=== PATIENT | male | born 1960 | race Caucasian/White ===

== ENCOUNTER 2024-07-07 18:45 | Emergency (ER) | payer MEDICAID, SELFPAY ==
--- NOTE | ~2024-07-07 | CT_ITS ---
EXAMINATION CT HEAD WITHOUT CONTRAST CLINICAL INFORMATION: Altered mental status COMPARISON: None TECHNIQUE: CT of the head was performed without intravenous contrast. Reformatted axial, coronal, and sagittal images were reviewed. This CT examination was performed using dose optimization techniques as appropriate, variously including the following: *Automated exposure control *Adjustment of mA and/or kV according to patient size (this includes techniques or standardized protocols for targeted exams where dose is matched to indication/reason for exam; i.e. extremities or head) *Use of iterative reconstruction technique DLP: 657 mGy-cm FINDINGS: No intracranial hemorrhage, extra-axial fluid collection, or midline shift is identified. Hollis-white matter differentiation is preserved. Prominence of the cerebral sulci with commensurate ventriculomegaly consistent with age-related cerebral volume loss. Basal cisterns are within normal limits. Paranasal sinuses are clear. Mastoid air cells and middle ear cavities are clear. No acute calvarial fractures. CT/CT head/brain wo IV con IMPRESSION: 1. No acute intracranial abnormality. 2. Age-related cerebral volume loss. Electronically signed by: Simon Campbell DO 07/07/2024 10:49 PM [place]
[2024-07-07 18:50] VITALS: BP 131/89; PULSE 104; RESP 20; TEMP 36.7; O2SAT 94; BMI 18.3
--- NOTE | 2024-07-07 18:50 | ED.GENADULT ---
HPI - General Adult General Chief complaint: General Medical Stated complaint: crisis Time Seen by Provider: 07/07/24 19:32 History of Present Illness ED Provider: Rebecca LAM narrative: The patient is a 64-year-old male who says that he is homeless. He is currently staying at a [facility] called [facility] He says that he is on 3 medications for depression and anxiety. He says that these medications have helped him stay focused and have also helped him stay off alcohol. He says that he has been quite sober for the last 6 months. He is concerned because he has run out of his medications and has not been able to get a refill. He says he has been on these medications for about 2 years. He cannot remember the name of the medications. He thinks that he may have gotten the medications through the [facility] in [place]. He says that he was told that he needs to be seen by a provider before he can get refills and he has been unable to arrange this. Today he drank some beer and he felt quite upset about this and so came to the emergency room for help. Subsequent history was available from some kind of product expert who contacted the hospital. Apparently the patient's prescribed medications are atorvastatin, hydroxyzine, escitalopram, and bupropion. The product expert indicated the patient has not taken medications in months. The product expert also indicated that the patient had expressed some suicidal ideation and had spoken about possibly jumping off a bridge. Related Data Allergies Allergy/AdvReac Type Severity Reaction Status Date / Time No Known Allergies Allergy Unverified 07/07/24 18:54 Review of Systems Review of Systems: Yes all other systems are reviewed and are negative PMFSH Social History Social History Advance Directives: No Advance Directives Information Provided: Yes Physical Exam ED Vital Signs: Vital Signs - 24 hr 07/07/24 18:50 07/07/24 19:26 07/07/24 22:01 Temperature 98.0 F 97.5 F 97.8 F Pulse Rate 104 H 95 84 Respiratory Rate 20 16 16 Blood Pressure 131/89 114/72 130/74 Pulse Oximetry 94 97 97 Oxygen Delivery Method Room Air Room Air Room Air 07/07/24 22:58 Temperature 97.8 F Pulse Rate 84 Respiratory Rate 16 Blood Pressure 130/74 Pulse Oximetry 97 Oxygen Delivery Method Room Air BMI result Body Mass Index 18.3 Const Other: The patient is awake and alert, pleasant and cooperative. Does not seem in acute distress. He is a slim 64-year-old who looks somewhat older than his age. He does not seem obviously in distress. HENMT Other: Face is symmetrical. Mucous membranes moist. Eyes Other: Pupils are round equal, conjunctivae are clear, extraocular movements intact Neck Neck: Yes full ROM and Yes no JVD Resp Effort & Inspection: normal respiratory effort Auscultation: clear to auscultation bilaterally Cardio Rate: regular rate Rhythm: regular rhythm Heart sounds: S1 normal heart sound present and S2 normal heart sound present GI Other: Abdomen is soft and nontender Skin Other: Skin is pale and dry Neuro Other: The patient is awake and alert. Mental status seems reasonably clear. Cranial nerves are intact. He moves his extremities normally and appropriately. He seems steady on his feet. Extrem Other: No peripheral edema. Psych Other: The patient is very pleasant and cooperative. He seems reasonably well groomed. He denied any definite suicidal thoughts. Course Course Course Narrative: This is a rapid medical exam performed by Alber Ravi NP: Additional HPI, ROS, PE not included below will be deferred to primary provider. Patient is a 64-year-old male presenting to the ED with complaint of anxiety. States he has been out of his anxiety medication for the past week. Started drinking to manage his anxiety. Last drink was 6 hours ago, state has not drank any alcohol for the past 3 months. Was living at a sober house. [facility] currently at the [facility]. Denies history of withdrawal seizures. Complains of frequent headaches though he states he is on medication for headaches. Denies SI, HI, AH, VH. Medical Decision Making Medical Decision Making MDM Narrative: The patient is a 64-year-old male with a history of depression. He also has a history of alcoholism and homelessness. 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 He says that he pays some kind of rent or fee to stay there. The patient was advised to come here because he had mentioned to someone that he had thoughts about jumping off a bridge. Clinically the patient seems medically clear although his ETOH level was mildly elevated at 131. Labs were unremarkable otherwise and CT of the head was unremarkable. The patient was seen by the care team. The care team counselor did not feel that the patient was at very high risk for self-harm. Therefore the patient was not felt to require inpatient psychiatric level of care. The patient will therefore be discharged back to his program at [facility]. A referral has been made to the [facility] at [facility] in [place]. My hope is that this might expedite some kind of appointment for consideration of restarting of his psychiatric medications, bupropion and escitalopram. The patient seemed comfortable being discharged. Lab Data 07/07/24 19:48 07/07/24 19:48 Labs: Lab Results 07/07/24 Range/Units 19:48 WBC 8.4 (4.8-10.8) X10*3/uL RBC 4.65 (4.60-5.80) X10*6/uL Hgb 14.7 (14.0-18.0) g/dl Hct 43.1 (42.0-52.0) % MCV 92.7 (80.0-98.0) fL MCH 31.6 (27.0-33.0) pg MCHC 34.1 (31.0-36.0) g/dl RDW 13.9 (11.0-16.0) % Plt Count 210 (160-400) X10*3/uL MPV 8.5 L (9.4-12.4) fL Immature Gran % (Auto) 0.2 (0.0-0.4) % Neut % (Auto) 63.8 (45-73) % Lymph % (Auto) 29.9 (20-40) % [place] % (Auto) 5.2 (2-11) % Eos % (Auto) 0.5 (0-4) % Baso % (Auto) 0.4 (0-2) % Lymph # (Auto) 2.5 (1.2-4.9) X10*3/uL [place] # (Auto) 0.4 (0.1-1.2) X10*3/uL Eos # (Auto) 0.0 (0.0-0.4) X10*3/uL Baso # (Auto) 0.0 (0.0-0.2) X10*3/uL Abs Immat Gran (auto) 0.02 (0.00-0.03) X10*3/uL Absolute Neuts (auto) 5.4 (2.0-8.3) x10*3/uL Absolute Nucleated RBC 0.000 (0.0-0.012) X10*3/uL Nucleated RBC % (auto) 0.0 (0.0-0.2) /100WBC Sodium 143 (135-145) mmol/L Potassium 3.9 (3.3-5.1) mmol/L Chloride 107 (96-108) mmol/L Carbon Dioxide 23 (22-29) mmol/L Anion Gap 17 (12-20) BUN 9 (9-16) mg/dL Creatinine 1.03 (0.5-1.4) mg/dL Estim Creat Clear Calc 55.1 Estimated GFR > 60 Random Glucose 87 (60-115) mg/dL Calcium 9.6 (8.4-10.2) mg/dL Magnesium 2.3 (1.6-2.6) mg/dL Total Bilirubin 0.4 (0.0-1.0) mg/dL AST 33 (5-37) U/L ALT 15 (0-40) U/L Alkaline Phosphatase 56 (39-117) U/L Total Protein 7.3 (6.5-8.0) g/dL Albumin 4.2 (3.5-5.0) g/dL Ethyl Alcohol 131 mg/dL Discharge Plan Discharge Clinical Impression: Depression Patient Disposition: Home, Self-Care Additional Instructions: You were seen by our Behavioral Health team (the care team) today. The counselor who saw you has made a referral to the [facility] ([facility]) in hopes of getting you seen promptly at their facility at [address] [facility] in [place]. [facility] has a office on [facility] called the [facility]. My hope is you will get a call from them tomorrow or the next day for an appointment so that you can get restarted on your psychiatric medications. If you do not hear from them in the next day or so you may call them at [phone]. Please do your best to limit your alcohol intake. Our records indicate you may have Dr. Sofia as your primary care doctor. Please contact Dr. Sofia's office for a medical appointment as well. Return to the emergency room if significantly worse. Referrals: [facility] [Outside] (depression, off medications) Eldon Sofia MD [Primary Care Provider] - (depression, homelessness, alcoholism, elevated cholesterol) Interventions: ED Discharge Assessment Last Done: 07/07/24 22:58 Discharge Date/Time: 07/07/24 23:00 Print Language: Frisian
[2024-07-07 19:26] VITALS: BP 114/72; PULSE 95; RESP 16; TEMP 36.4; O2SAT 97
--- NOTE | 2024-07-07 19:27 | MHC.EDTECH ---
This pct just assumed care of Patient ,vitals taken ,Patient said he not able to give urine sample at this time .
--- NOTE | 2024-07-07 19:44 | ECG_ITS ---
Test Reason : tachycardia Blood Pressure : / mmHG Vent. Rate : 084 BPM Atrial Rate : 084 BPM P-R Int : 166 ms QRS Dur : 072 ms QT Int : 352 ms P-R-T Axes : 084 072 069 degrees QTc Int : 415 ms Normal sinus rhythm Normal ECG When compared with ECG of 11-MAY-2010 06:57, Nonspecific T wave abnormality no longer evident in Anterior leads QT has shortened Referred By: Ivan Fernandez Electronically Signed By:MARCELA CULLEN MD
[2024-07-07 19:55] LABS: MANUAL DIFF FLAG NO
[2024-07-07 19:57] LABS: Basophils Percent Auto 0.4 % (0-2); Eosinophils Percent Auto 0.5 % (0-4); Hematocrit 43.1 % (42.0-52.0); Hemoglobin 14.7 g/dl (14.0-18.0); Imm Gran Abs Auto 0.02 X10*3/uL (0.00-0.03); Imm Gran Pct Auto 0.2 % (0.0-0.4); Lymphocytes Absolute Auto 2.5 X10*3/uL (1.2-4.9); Lymphocytes Percent Auto 29.9 % (20-40); Mean Corpuscular HGB Conc 34.1 g/dl (31.0-36.0); Mean Corpuscular Hemoglobin 31.6 pg (27.0-33.0); Mean Corpuscular Volume 92.7 fL (80.0-98.0); Mean Platelet Volume 8.5 fL (9.4-12.4); Monocytes Absolute Auto 0.4 X10*3/uL (0.1-1.2); Monocytes Percent Auto 5.2 % (2-11); Neutrophils Absolute Auto 5.4 x10*3/uL (2.0-8.3); Neutrophils Percent Auto 63.8 % (45-73); Platelet Count 210 X10*3/uL (160-400); Red Blood Count 4.65 X10*6/uL (4.60-5.80); Red Cell Distribution Width 13.9 % (11.0-16.0); White Blood Count 8.4 X10*3/uL (4.8-10.8)
[2024-07-07 20:08] LABS: Ethanol 131 mg/dL
[2024-07-07 20:11] LABS: Alanine Aminotransferase 15 U/L (0-40); Albumin Level 4.2 g/dL (3.5-5.0); Alkaline Phosphatase 56 U/L (39-117); Anion Gap 17 (12-20); Aspartate Amino Transferase 33 U/L (5-37); Bilirubin Total 0.4 mg/dL (0.0-1.0); Blood Urea Nitrogen 9 mg/dL (9-16); Calcium 9.6 mg/dL (8.4-10.2); Carbon Dioxide 23 mmol/L (22-29); Chloride 107 mmol/L (96-108); Creatinine Clr Calc Pharmacy 55.1; Estimated Glomerular Filt Rate > 60; Glucose Random 87 mg/dL (60-115); Magnesium 2.3 mg/dL (1.6-2.6); Potassium 3.9 mmol/L (3.3-5.1); Sodium 143 mmol/L (135-145); Total Protein 7.3 g/dL (6.5-8.0)
--- NOTE | 2024-07-07 20:40 | PC.NURSE ---
I spoke with [employer] telephonic case manager Siobhan who is very concerned for the patient. She says that Mike has been helping his mother care for the man she is living with who has not been very nice. Mike has gotten into verbal altercations with him in attempt to stick up for his mother. Today when he returned to his residence at [facility] he had spoken to Siobhan and broke down sobbing to her stating I don't feel safe. I don't know how to deal with all of the thoughts in my head. [place] [facility]. I have never felt like this. Siobhan says she would love to see him go to [place] and whenever he is discharged his room is safe for him to come back to at [facility]. She has said over the last year he has gotten progressively more confused.
[2024-07-07 22:01] VITALS: BP 130/74; PULSE 84; RESP 16; TEMP 36.6; O2SAT 97
[2024-07-07 22:58] VITALS: BP 130/74; PULSE 84; RESP 16; TEMP 36.6; O2SAT 97
--- NOTE | 2024-07-08 00:16 | MHC.CARE ---
Spoke with Guerline at [facility] who confirms she recieved Pt's [facility] 3-day follow-up referral and that it is activated.
== END 2024-07-07 23:00 | disposition home or self-care (01) ==
PROVIDERS: Registered Nurse Emergency; Emergency Provider Emergency Medicine; PCP Internal Medicine
DX: F32.A Depression, unspecified (principal); R00.0 Tachycardia, unspecified; R41.82 Altered mental status, unspecified; R45.851 Suicidal ideations; F41.9 Anxiety disorder, unspecified; Z59.01 Sheltered homelessness
CPT/HCPCS: 36415; 70450; 80053; 80307; 83735; 85025; 93005; 99284; S9485

== ENCOUNTER → 2024-07-07 19:44 | Outpatient (BNV) | payer MEDICAID, SELFPAY | PROVIDERS: Emergency Provider Emergency Medicine; PCP Internal Medicine; Visit Provider Internal Medicine Cardiovascular Disease | DX: R00.0 Tachycardia, unspecified (principal) | CPT/HCPCS: 93010 ==